=== PATIENT | female | born 1995 | race Two or more races ===

== ENCOUNTER 2020-04-08 14:37 | Observation (INO) | payer MEDICAID ==
[~2020-04-08] VITALS: Ht 160 cm; Wt 73.9 kg
[2020-04-08] MEDS ORDERED: ONDANSETRON HCL 4MG/2ML INJ IV NR (15:00)
[2020-04-08] MEDS: LACTATED RINGERS 1,000 ML IV SCH ×2 (15:23→17:05)
[2020-04-08 16:12] LABS: BASOPHILS % 0.3 % (0.0-2.0); EOSINOPHILS % 0.3 % (0.0-5.0); LYMPHOCYTES % 22.9 % (20.0-50.0); MEAN CORPUSCULAR HEMOGLOBIN 33.3 pg (28.0-32.0); MEAN CORPUSCULAR VOLUME 93.8 fL (81.0-99.0); MEAN PLATELET VOLUME 6.5 fl (7.4-10.4); MONOCYTES % 7.8 % (2.0-8.0); NEUTROPHILS % 68.7 % (40.0-76.0); PLATELET 306 x1000/uL (130-400); RED CELL DISTRIBUTION WIDTH 13.2 % (11.6-14.6)
[2020-04-08 16:17] LABS: CHLORIDE 107 mEq/L (98-107)
[2020-04-08 16:57] LABS: CLARITY URINE CLEAR (CLEAR); COLOR URINE YELLOW (YELLOW); KETONES URINE NEGATIVE (NEGATIVE); LEUKOCYTE ESTERASE URINE NEGATIVE (NEGATIVE); NITRITE URINE POSITIVE (NEGATIVE); OCCULT BLOOD URINE 1+ (NEGATIVE); PH URINE 6.5 (4.5-8.0); PROTEIN URINE NEGATIVE (NEGATIVE); SPECIFIC GRAVITY URINE 1.008 (1.005-1.030); UROBILINOGEN URINE 0.2 E.U./dL (0.2-1.0)
[2020-04-08] MEDS ORDERED: CITRIC ACID/SODIUM CITRATE SOLN 30ML UDC PO NR (17:41)
[2020-04-08] MEDS ORDERED: FAMOTIDINE 20MG/2ML VIAL IV NR (18:30)
[2020-04-08] MEDS ORDERED: ONDA4TAB50 MT (20:34)
[2020-04-25] MEDS ORDERED: PNV1TABL MT (10:40)
[2020-04-25] MEDS ORDERED: AM250 MT (10:41)
[2020-04-28] MEDS ORDERED: IBUP-2030 PO (06:42)
== END 2020-04-08 21:00 | disposition home or self-care (01) ==
LOC: 8 EST LDRP 14:37
PROVIDERS: ADMIT Obstetrics & Gynecology; ATTEND Obstetrics & Gynecology
DX: O21.2 Late vomiting of pregnancy (principal); O99.613 Diseases of the digestive system complicating pregnancy, third trimester; R19.7 Diarrhea, unspecified; Z3A.36 36 weeks gestation of pregnancy
CPT/HCPCS: 36415; 59025; 80053; 81003; 85025; 96361; 96374; 96375; G0378; J2405; J3490; J7120; 96360; 99281

== ENCOUNTER 2020-04-21 17:36 | Observation (INO) | payer MEDICAID ==
[~2020-04-21] VITALS: Ht 160 cm; Wt 78.5 kg
[~2020-04-21 17:36] MED LIST: ONDA4TAB50 MT
[2020-04-21] MEDS ORDERED: LACTATED RINGERS 1,000 ML IV SCH (19:00)
[2020-04-21 19:24] LABS: CLARITY URINE CLOUDY (CLEAR); COLOR URINE DARK YELLOW (YELLOW); KETONES URINE TRACE (NEGATIVE); LEUKOCYTE ESTERASE URINE 1+ (NEGATIVE); NITRITE URINE POSITIVE (NEGATIVE); OCCULT BLOOD URINE 2+ (NEGATIVE); PH URINE 5.5 (4.5-8.0); PROTEIN URINE 1+ (NEGATIVE); SPECIFIC GRAVITY URINE 1.027 (1.005-1.030)
[2020-04-21] MEDS ORDERED: CEFAZOLIN 2,000 MG in DEXT 5% WATER 100 ML IV SCH (20:00)
[2020-04-25] MEDS ORDERED: PNV1TABL MT (10:40)
[2020-04-25] MEDS ORDERED: AM250 MT (10:41)
[2020-04-28] MEDS ORDERED: IBUP-2030 PO (06:42)
== END 2020-04-21 21:15 | disposition home or self-care (01) ==
LOC: 8 EST LDRP 17:36
PROVIDERS: ADMIT Obstetrics & Gynecology; ATTEND Obstetrics & Gynecology
DX: O26.893 Other specified pregnancy related conditions, third trimester (principal); R10.30 Lower abdominal pain, unspecified; Z3A.38 38 weeks gestation of pregnancy
CPT/HCPCS: 59025; 81003; 87077; 87086; 87186; 96361; 96365; G0378; J0690; J7060; 96360; 99281